=== PATIENT | male | born 1960 | race Caucasian/White ===

== ENCOUNTER 2019-08-30 10:25 | Emergency (ER) | payer SELFPAY ==
[~2019-08-30] VITALS: Ht 170 cm; Wt 65.0 kg
--- NOTE | 2019-08-30 10:46 | ED Upper Extremity ---
General Chief Complaint: Upper Extremity Stated Complaint: POSS BROKEN ARM Source: patient Exam Limitations: no limitations History of Present Illness Date Seen by Provider: Aug 30, 2019 Time Seen by Provider: 10:44 Initial Comments ER with right shoulder pain after he tripped and fell landing directly on the shoulder last night while caring for his dogs. Onset: yesterday Severity: moderate Pain/Injury Location: right shoulder Method of Injury: fell Modifying Factors: Worse With Movement Allergies and Home Medications Allergies Coded Allergies: No Known Drug Allergies (Unverified , 08/30/19) Home Medications No Active Prescriptions or Reported Meds Patient Home Medication List Home Medication List Reviewed: Yes Review of Systems Constitutional: see HPI EENTM: see HPI Respiratory: no symptoms reported Cardiovascular: no symptoms reported Genitourinary: no symptoms reported Musculoskeletal: see HPI Skin: no symptoms reported Psychiatric/Neurological: No Symptoms Reported Past Muclfit-Dzyxem-Xsftym Hx Patient Social History Recent Foreign Travel: No Contact w/Someone Who Travel: No Physical Exam Vital Signs Vital Signs - First Documented 08/30/19 10:30 Temp 37.0 Pulse 102 Resp 16 B/P (MAP) 136/95 (109) Pulse Ox 98 O2 Delivery Room Air Capillary Refill : Height, Weight, BMI Height: '" Weight: lbs. oz. kg; BMI Method: General Appearance: WD/WN, no apparent distress HEENT: PERRL/EOMI, normal ENT inspection Neck: non-tender, full range of motion Gastrointestinal: normal bowel sounds, non tender Shoulder: limited ROM, pain, soft tissue tenderness Elbow/Forearm: normal inspection, non-tender, Right Wrist: Yes normal inspection, Yes non-tender Hand: normal inspection, non-tender, Right Neurologic/Psychiatric: alert, normal mood/affect, oriented x 3 Skin: normal color, warm/dry Progress/Results/Core Measures Results/Orders My Orders Orders - LYNDA HARRISON APRN Shoulder, Right, 3 Views (08/30/19 10:39) Vital Signs/I&O 08/30/19 10:30 Temp 37.0 Pulse 102 Resp 16 B/P (MAP) 136/95 (109) Pulse Ox 98 O2 Delivery Room Air Departure Impression Primary Impression: Shoulder fracture, right Qualified Codes: S42.91XA - Fracture of right shoulder girdle, part unspecified, initial encounter for closed fracture Disposition: 01 HOME, SELF-CARE Condition: Stable Departure-Patient Inst. Decision time for Depature: 11:01 Referrals: TITA PETTIT JOHN T MD SCHWAB, TERRY D MD STRINGER, ROBERT F DO ZAFUTA, MICHAEL P MD Patient Instructions: Shoulder Fracture Add. Discharge Instructions: 1. Wear the sling at all times except when showering 2. Take medication as directed. The pain medication can be constipating. You should increase her water intake and take a stool softener such as docusate which can be purchased [id number] [facility] or [facility] to help avoid constipation. 3. Call orthopedic surgeon of your choosing today or tomorrow to make an appointment to be seen within the next few weeks. All discharge instructions reviewed with patient and/or family. Voiced understanding. Scripts Hydrocodone Bit/Acetaminophen (Hydrocodone/Acetaminophen 5/325mg Tablet) 1 Tab Tab 1 EACH PO Q4-6HR PRN for PAIN-MODERATE MDD 10 for 3 Days, #30 TAB Prov: LYNDA HARRISON APRN 08/30/19 LYNDA HARRISON APRN Aug 30, 2019 10:46 POS
--- NOTE | 2019-08-30 11:02 | Diagnostic Imaging Report ---
INDICATION: Right shoulder pain. AP, oblique, and transscapular views of the right shoulder are obtained. There is acute fracture of the right humeral neck and head, without significant angulation. There is no dislocation of the glenohumeral joint. AC joint is intact. IMPRESSION: Acute fracture of the right humeral neck and head, with no significant angulation. Dictated by: Dictated on workstation # [id number]
[2019-08-30] MEDS ORDERED: ACHD5005 PO (11:03)
[2019-08-30] MEDS ORDERED: OXYC1TAB87 PO (11:10)
[2019-08-30 11:25] VITALS: BP 136/95
== END 2019-08-30 11:25 | disposition home or self-care (01) ==
LOC: EDUNIT# 10:25 → ER 10:32
DX: S42.91XA Fracture of right shoulder girdle, part unspecified, initial encounter for closed fracture (principal); W01.0XXA Fall on same level from slipping, tripping and stumbling without subsequent striking against object, initial encounter
CPT/HCPCS: 73030

== ENCOUNTER 2020-02-06 11:26 | Inpatient (IN) | payer SELFPAY ==
[~2020-02-06] VITALS: Ht 167.7 cm; Wt 75.0 kg
[2020-02-06] VITALS (10 sets, daily range): BP systolic 94–123; BP diastolic 6–85
[~2020-02-06 11:26] MED LIST: ACHD5005 PO; OXYC1TAB87 PO
--- OUTSIDE RECORDS SUMMARY | 2020-02-06 11:31 | XMS REPORT | Continuity of Care Document ---
Author Organization Unknown Address Unknown Phone Unavailable Allergies Active Description Code Type Severity Reaction Onset Reported/Identified Relationship to Patient Clinical Status Yes No Known Drug Allergies [id number] Drug Allergy Unknown N/A 08/30/2019 Medications There is no data. Problems There is no data. Procedures There is no data. Results There is no data. Encounters ACCT No. Visit Date/Time Discharge Status Pt. Type Provider Facility Loc./Unit Complaint [id number] 07/02/2017 08:28:00 07/02/2017 23:59: 00 DIS Outpatient DARREN VAZQUEZ [id number] 08/30/2019 10:32:00 019 11:25:00 DIS Emergency LYNDA HARRISON APRN Via [facility] ER POSS BROKEN ARM
--- NOTE | 2020-02-06 12:03 | ED General ---
General Stated Complaint: BILAT LEG SWELLING/NOT URINATING FREQUENTLY Source of Information: Patient Exam Limitations: No Limitations History of Present Illness Date Seen by Provider: February 06, 2020 Time Seen by Provider: 12:00 Initial Comments To ER with reports of urinary infrequency despite drinking a lot of fluids for the past week. He reports that when he does urinate it all. No fevers no chills but he has had shortness of breath without cough for one week. He's had bilateral right greater than left lower extremity swelling and ecchymosis without known injury for the past 3 days. He knows he is healthy and takes no medications and follows with Dr. Ram. Timing/Duration: 3-4 Days Severity: Moderate Associated Systoms: No Chest Pain, No Cough, No Diaphoresis, No Fever/Chills Allergies and Home Medications Allergies Coded Allergies: No Known Drug Allergies (Unverified , 08/30/19) Home Medications Hydrocodone Bit/Acetaminophen 1 Tab Tab, 1 EACH PO Q4-6HR PRN for PAIN-MODERATE Prescribed by: LYNDA HARRISON on 08/30/19 1103 Oxycodone HCl/Acetaminophen 1 Each Tablet, 1 TAB PO Q4H Prescribed by: LYNDA HARRISON on 08/30/19 1110 Patient Home Medication List Home Medication List Reviewed: Yes Review of Systems Review of Systems Constitutional: see HPI EENTM: see HPI Respiratory: no symptoms reported Cardiovascular: no symptoms reported Genitourinary: no symptoms reported Musculoskeletal: no symptoms reported Skin: see HPI, change in color Psychiatric/Neurological: No Symptoms Reported Hematologic/Lymphatic: No Symptoms Reported Immunological/Allergic: no symptoms reported Past Kxigtcg-Afmdns-Zikgwn Hx Patient Social History Former Smoker, Quit: Aug 15, 2003 Recent Foreign Travel: No Contact w/Someone Who Travel: No Recent Hopitalizations: No Past Medical History Surgeries: No Respiratory: No Cardiac: Yes Hypertension Genitourinary: No Gastrointestinal: No Musculoskeletal: No Endocrine: No HEENT: No Cancer: No Psychosocial: No Integumentary: No Physical Exam Vital Signs Vital Signs - First Documented 02/06/20 11:40 Temp 36.9 Pulse 83 Resp 18 B/P (MAP) 136/74 (94) Pulse Ox 100 O2 Delivery Room Air Capillary Refill : Height, Weight, BMI Height: '" Weight: lbs. oz. kg; 22.00 BMI Method: General Appearance: No Apparent Distress, WD/WN, Thin Eyes: Bilateral Eye Normal Inspection, Bilateral Eye PERRL, Bilateral Eye EOMI Neck: Full Range of Motion, Normal Inspection Respiratory: Normal Breath Sounds, No Accessory Muscle Use, No Respiratory Distress, Other (despite CT findings there is no ecchymosis or tenderness to palpation to the right lateral chest) Cardiovascular: Regular Rate, Rhythm, Normal Peripheral Pulses Gastrointestinal: Normal Bowel Sounds, Non Tender, Soft Extremity: Non Tender, Other (bilateral lower extremities swelling right greater than left with pitting edema up to the pelvis. Bilateral lower extremities have a jaundiced and ecchymotic appearance with erythema distally. He has audible blood flow with Doppler over the dorsalis pedis arteries bilaterally.) Neurologic/Psychiatric: Alert, Oriented x3 Skin: Normal Color, Warm/Dry Progress/Results/Core Measures Suspected Sepsis SIRS Temperature: Pulse: Respiratory Rate: Laboratory Tests 02/06/20 11:55: White Blood Count 7.6 Blood Pressure / Mean: Laboratory Tests 02/06/20 11:55: Creatinine 0.92, INR Comment 1.5H, Platelet Count 264, Total Bilirubin 2.5H Results/Orders Lab Results Laboratory Tests Test 02/06/20 11:55 Range/Units White Blood Count 7.6 4.3-11.0 10^3/uL Red Blood Count 2.32 L 4.35-5.85 10^6/uL Hemoglobin 7.4 L 13.3-17.7 G/DL Hematocrit 22 L 40-54 % Mean Corpuscular Volume 95 80-99 FL Mean Corpuscular Hemoglobin 32 25-34 PG Mean Corpuscular Hemoglobin Concent 34 32-36 G/DL Red Cell Distribution Width 13.1 10.0-14.5 % Platelet Count 264 130-400 10^3/uL Mean Platelet Volume 10.3 7.4-10.4 FL Neutrophils (%) (Auto) 79 H 42-75 % Lymphocytes (%) (Auto) 10 L 12-44 % Monocytes (%) (Auto) 9 0-12 % Eosinophils (%) (Auto) 1 0-10 % Basophils (%) (Auto) 0 0-10 % Neutrophils # (Auto) 6.1 1.8-7.8 X 10^3 Lymphocytes # (Auto) 0.8 L 1.0-4.0 X 10^3 Monocytes # (Auto) 0.7 0.0-1.0 X 10^3 Eosinophils # (Auto) 0.1 0.0-0.3 10^3/uL Basophils # (Auto) 0.0 0.0-0.1 10^3/uL Erythrocyte Sedimentation Rate 43 H 0-30 MM/HR Prothrombin Time 18.6 H 12.2-14.7 SEC INR Comment 1.5 H 0.8-1.4 Activated Partial Thromboplast Time 30 24-35 SEC D-Dimer 3.52 H 0.00-0.49 UG/ML Sodium Level 122 *L 135-145 MMOL/L Potassium Level 3.7 3.6-5.0 MMOL/L Chloride Level 91 L 98-107 MMOL/L Carbon Dioxide Level 20 L 21-32 MMOL/L Anion Gap 11 5-14 MMOL/L Blood Urea Nitrogen 15 7-18 MG/DL Creatinine 0.92 0.60-1.30 MG/DL Estimat Glomerular Filtration Rate > 60 BUN/Creatinine Ratio 16 Glucose Level 109 H 70-105 MG/DL Calcium Level 7.7 L 8.5-10.1 MG/DL Corrected Calcium 8.5 8.5-10.1 MG/DL Total Bilirubin 2.5 H 0.1-1.0 MG/DL Aspartate Amino Transf (AST/SGOT) 25 5-34 U/L Alanine Aminotransferase (ALT/SGPT) 14 0-55 U/L Alkaline Phosphatase 82 40-136 U/L Troponin I < 0.028 <0.028 NG/ML C-Reactive Protein High Sensitivity 6.39 H 0.00-0.50 MG/DL B-Type Natriuretic Peptide 163.1 H <100.0 PG/ML Total Protein 5.4 L 6.4-8.2 GM/DL Albumin 3.0 L 3.2-4.5 GM/DL Serum Alcohol < 10 <10 MG/DL My Orders Orders - LYNDA HARRISON APRN Cbc With Automated Diff (02/06/20 11:52) Comprehensive Metabolic Panel (02/06/20 11:52) Erythrocyte Sedimentation Rate (02/06/20 11:52) Hs C Reactive Protein (02/06/20 11:52) Fibrin Degradation Products (02/06/20 11:52) Ekg Tracing (02/06/20 11:52) BNP (02/06/20 11:52) Ed Iv/Invasive Line Start (02/06/20 11:52) Protime With Inr (02/06/20 11:52) Partial Thromboplastin Time (02/06/20 11:52) Troponin I (02/06/20 11:52) Ua Culture If Indicated (02/06/20 12:04) Ct Chest/Abdomen/Pelvis Wo (02/06/20 12:05) Ct Cynthia Chest/Noang Abd-Pelv W (02/06/20 12:36) Iohexol Injection (Omnipaque 350 Mg/Ml 1 (02/06/20 13:00) Received Contrast (Hold Metformin- Contr (02/06/20 13:00) Sodium Chloride Flush (Catheter Flush Sy (02/06/20 13:00) Ns (Ivpb) (Sodium Chloride 0.9% Ivpb Bag (02/06/20 13:00) Alcohol (02/06/20 12:55) Red Cells Leukocytes Reduced (02/06/20 13:44) Type And Screen (02/06/20 13:44) Medications Given in ED Current Medications Medications Dose Ordered Sig/Edith Route Start Time Stop Time Status Last Admin Dose Admin Iohexol 100 ml ONCE ONCE IV 02/06/20 13:00 02/06/20 13:01 DC 02/06/20 13:07 61 ML Sodium Chloride 10 ml NEEDED PRN IV 02/06/20 13:00 02/06/20 13:07 10 ML Sodium Chloride 100 ml ONCE ONCE IV 02/06/20 13:00 02/06/20 13:01 DC 02/06/20 13:07 80 ML Vital Signs/I&O 02/06/20 11:40 Temp 36.9 Pulse 83 Resp 18 B/P (MAP) 136/74 (94) Pulse Ox 100 O2 Delivery Room Air Capillary Refill : Diagnostic Imaging Diagonstic Imaging: CT Comments NAME: ALEKSEY ROY MED REC#: [id number] PT STATUS: REG ER : 1960 PHYSICIAN: LYNDA HARRISON APRN ADMIT DATE: 02/06/20/ER Draft Date of Exam:02/06/20 CT CHEST/ABDOMEN/PELVIS WO PROCEDURE: CT chest, abdomen, and pelvis without contrast. TECHNIQUE: Multiple contiguous axial images were obtained through the chest, abdomen, and pelvis without the use of intravenous contrast. Auto Exposure Controls were utilized during the CT exam to meet ALARA standards for radiation dose reduction. INDICATION: Bilateral lower extremity swelling and bruising. Dark urine. COMPARISON: None. FINDINGS: CHEST: Advanced centrilobular emphysema. Calcific granulomas in the right lung. Lungs are otherwise clear. No pleural effusion or pneumothorax. Calcified right hilar and mediastinal lymph nodes. No mediastinal, hilar or axillary lymphadenopathy. Normal heart size. No pericardial effusion. Mild atherosclerotic calcifications. Right 4th through 8th rib fractures appear acute to subacute but evaluation is limited by motion. ABDOMEN AND PELVIS: Cholelithiasis without secondary findings of cholecystitis. The liver, pancreas, spleen, adrenals, kidneys, collecting systems, bladder and appendix are negative. No free intraperitoneal air or fluid. No lymphadenopathy. No evidence of bowel obstruction. Moderate atherosclerotic calcifications including a normal caliber abdominal aorta. Minimal anterior wedging of L3 results in approximately 10% height loss. This is age indeterminate but likely chronic. Advanced degenerative changes in the left hip, moderate in the right. IMPRESSION: 1. Examination limited by motion. 2. Advanced centrilobular emphysema. 3. Right 4th through 8th mildly angulated lateral rib fractures appear acute to subacute. 4. Minimal anterior wedging of L3 appears chronic but is technically indeterminate. This could be further evaluated with MRI if clinically warranted. 5. Cholelithiasis without secondary findings of cholecystitis. 6. No acute CT findings in the abdomen or pelvis on this noncontrast exam. Dictated on workstation # [id number] Dict: 02/06/20 1229 Trans: 02/06/20 1250 [facility] [id number] Interpreted by: ALDA MENSAH MD Electronically signed by: NAME: ALEKSEY ROY [place] MED REC#: [id number] PT STATUS: REG ER : 1960 PHYSICIAN: LYNDA HARRISON ENVIRONMENTAL TECHNICAL OFFICER ADMIT DATE: 02/06/20/ER Draft Date of Exam:02/06/20 CT [facility]NTHIA CHEST/NOANG ABD-PELV W CTA chest, abdomen and pelvis Thin axial sections through the chest, abdomen and pelvis are obtained following intravenous contrast bolus. Multiplanar MIP images were reconstructed and reviewed. All CT scans use one or more of the following dose optimizing techniques: automated exposure control, MA and/or KvP adjustment based on a patient size and exam type, or iterative reconstruction. INDICATION: Bilateral lower extremity swelling and bruising. Dark urine. COMPARISON: Chest, abdomen and pelvis without contrast performed today. FINDINGS: No pulmonary emboli. No thoracic aortic aneurysm or dissection. Normal caliber thoracic aorta. Normal heart size. No pericardial effusion. No mediastinal, hilar or axillary lymphadenopathy. Advanced centrilobular emphysema. Calcified granuloma in the right lung. Calcified right hilar lymph nodes. No pleural effusion or pneumothorax. No endobronchial lesions. Acute appearing mildly angulated right 5th through 9th rib fractures. Chronic appearing posterior lower left rib fractures. Schmorl's node and anterior wedging in the superior endplate of T4 appears chronic. Again noted is anterior wedging of L3 which is also likely chronic. Cholelithiasis without secondary findings of cholecystitis. The liver, pancreas, spleen, adrenals, kidneys, collecting systems and bladder are negative. Negative appendix. Moderate atherosclerotic calcifications. No free intraperitoneal air or fluid. No lymphadenopathy. No evidence of bowel obstruction or inflammation. Sclerosis in both femoral heads consistent with avascular necrosis. Advanced left and moderate right degenerative changes in the hips. IMPRESSION: 1. No pulmonary emboli. No thoracic aortic aneurysm or dissection. 2. Advanced centrilobular emphysema. 3. Mildly angulated right 5th through 9th rib fractures are acute. 4. Chronic appearing anterior wedging of the superior endplate of T4 with associated Schmorl's node. Again noted is anterior wedging of L3 which is also likely chronic. 5. Cholelithiasis without secondary findings of cholecystitis. 6. Moderate to advanced degenerative changes in both hips including evidence of avascular necrosis bilaterally. Dictated on workstation # [id number] Dict: 02/06/20 1318 Trans: 02/06/20 1339 [facility] [id number] Interpreted by: ALDA MENSAH MD Electronically signed by: Departure Communication (Admissions) Time/Spoke to Admitting Phy: 13:51 Dr. Maynard, will admit, hydrate, recheck labs in the morning, Impression Primary Impression: Anemia Qualified Codes: D64.9 - Anemia, unspecified Additional Impressions: Right rib fracture Qualified Codes: S22.41XA - Multiple fractures of ribs, right side, initial encounter for closed fracture Hyponatremia Disposition: ADMITTED INPATIENT Condition: Stable Admissions Decision to Admit Reason: Admit from ER (General) Decision to Admit/Date: February 06, 2020 Time/Decision to Admit Time: 13:44 Departure-Patient Inst. Referrals: DARREN RAM MD (PCP/Family) Primary Care Physician LYNDA HARRISON APRN February 06, 2020 12:03
[2020-02-06 12:06] LABS: BASOPHILS % (AUTO) 0 % (0-10); EOSINOPHILS # (AUTO) 0.1 10^3/uL (0.0-0.3); EOSINOPHILS % (AUTO) 1 % (0-10); HEMATOCRIT 22 % (40-54); HEMOGLOBIN 7.4 G/DL (13.3-17.7); LYMPHOCYTES # (AUTO) 0.8 X 10^3 (1.0-4.0); LYMPHOCYTES % (AUTO) 10 % (12-44); MEAN CORPUSCULAR HEMOGLOBIN 32 PG (25-34); MEAN CORPUSCULAR HGB CONC 34 G/DL (32-36); MEAN CORPUSCULAR VOLUME 95 FL (80-99); MEAN PLATELET VOLUME 10.3 FL (7.4-10.4); MONOCYTES # (AUTO) 0.7 X 10^3 (0.0-1.0); MONOCYTES % (AUTO) 9 % (0-12); NEUTROPHILS # (AUTO) 6.1 X 10^3 (1.8-7.8); NEUTROPHILS % (AUTO) 79 % (42-75); PLATELET COUNT 264 10^3/uL (130-400); RED CELL DISTRIBUTION WIDTH 13.1 % (10.0-14.5); WHITE BLOOD COUNT 7.6 10^3/uL (4.3-11.0)
[2020-02-06 12:15] LABS: CHLORIDE 91 MMOL/L (98-107); POTASSIUM 3.7 MMOL/L (3.6-5.0)
[2020-02-06 12:17] LABS: CALCIUM 7.7 MG/DL (8.5-10.1)
[2020-02-06 12:18] LABS: FIBRIN DEGRADATION PRODUCTS 3.52 UG/ML (0.00-0.49); GLUCOSE 109 MG/DL (70-105); INR 1.5 (0.8-1.4); PROTHROMBIN TIME PATIENT 18.6 SEC (12.2-14.7); TOTAL PROTEIN 5.4 GM/DL (6.4-8.2)
[2020-02-06 12:19] LABS: CARBON DIOXIDE 20 MMOL/L (21-32)
[2020-02-06 12:20] LABS: BILIRUBIN,TOTAL 2.5 MG/DL (0.1-1.0)
[2020-02-06 12:21] LABS: ALKALINE PHOSPHATASE 82 U/L (40-136)
[2020-02-06 12:22] LABS: CREATININE SERUM 0.92 MG/DL (0.60-1.30); GFR ESTIMATED > 60
[2020-02-06 12:23] LABS: BUN/CREATININE RATIO 16
[2020-02-06 12:25] LABS: ALANINE AMINOTRANSFERASE 14 U/L (0-55)
[2020-02-06 12:28] LABS: SODIUM 122 MMOL/L (135-145)
--- NOTE | 2020-02-06 12:51 | Diagnostic Imaging Report ---
PROCEDURE: CT chest, abdomen, and pelvis without contrast. TECHNIQUE: Multiple contiguous axial images were obtained through the chest, abdomen, and pelvis without the use of intravenous contrast. Auto Exposure Controls were utilized during the CT exam to meet ALARA standards for radiation dose reduction. INDICATION: Bilateral lower extremity swelling and bruising. Dark urine. COMPARISON: None. FINDINGS: CHEST: Advanced centrilobular emphysema. Calcific granulomas in the right lung. Lungs are otherwise clear. No pleural effusion or pneumothorax. Calcified right hilar and mediastinal lymph nodes. No mediastinal, hilar or axillary lymphadenopathy. Normal heart size. No pericardial effusion. Mild atherosclerotic calcifications. Right 4th through 8th rib fractures appear acute to subacute but evaluation is limited by motion. ABDOMEN AND PELVIS: Cholelithiasis without secondary findings of cholecystitis. The liver, pancreas, spleen, adrenals, kidneys, collecting systems, bladder and appendix are negative. No free intraperitoneal air or fluid. No lymphadenopathy. No evidence of bowel obstruction. Moderate atherosclerotic calcifications including a normal caliber abdominal aorta. Minimal anterior wedging of L3 results in approximately 10% height loss. This is age indeterminate but likely chronic. Advanced degenerative changes in the left hip, moderate in the right. IMPRESSION: 1. Examination limited by motion. 2. Advanced centrilobular emphysema. 3. Right 4th through 8th mildly angulated lateral rib fractures appear acute to subacute. 4. Minimal anterior wedging of L3 appears chronic but is technically indeterminate. This could be further evaluated with MRI if clinically warranted. 5. Cholelithiasis without secondary findings of cholecystitis. 6. No acute CT findings in the abdomen or pelvis on this noncontrast exam. Dictated by: Dictated on workstation # [id number]
[2020-02-06] MEDS ORDERED: HOLD METFORMIN - RECEIVED CONTRAST 20 ML VIAL IV SCH (13:00)
[2020-02-06] MEDS ORDERED: IOHEXOL 350 MG/ML 100 ML (OMNIPAQUE 350) VIAL IV ONE (13:00)
[2020-02-06] MEDS ORDERED: NS 100 ML (IVPB) BAG IV ONE (13:00)
[2020-02-06 13:03] LABS: ERYTHROCYTE SEDIMENTATION RATE 43 MM/HR (0-30)
[2020-02-06] MEDS: CATHETER FLUSH 10 ML SYR IV PRN (13:07)
--- NOTE | 2020-02-06 13:41 | Diagnostic Imaging Report ---
CTA chest, abdomen and pelvis Thin axial sections through the chest, abdomen and pelvis are obtained following intravenous contrast bolus. Multiplanar MIP images were reconstructed and reviewed. All CT scans use one or more of the following dose optimizing techniques: automated exposure control, MA and/or KvP adjustment based on a patient size and exam type, or iterative reconstruction. INDICATION: Bilateral lower extremity swelling and bruising. Dark urine. COMPARISON: Chest, abdomen and pelvis without contrast performed today. FINDINGS: No pulmonary emboli. No thoracic aortic aneurysm or dissection. Normal caliber thoracic aorta. Normal heart size. No pericardial effusion. No mediastinal, hilar or axillary lymphadenopathy. Advanced centrilobular emphysema. Calcified granuloma in the right lung. Calcified right hilar lymph nodes. No pleural effusion or pneumothorax. No endobronchial lesions. Acute appearing mildly angulated right 5th through 9th rib fractures. Chronic appearing posterior lower left rib fractures. Schmorl's node and anterior wedging in the superior endplate of T4 appears chronic. Again noted is anterior wedging of L3 which is also likely chronic. Cholelithiasis without secondary findings of cholecystitis. The liver, pancreas, spleen, adrenals, kidneys, collecting systems and bladder are negative. Negative appendix. Moderate atherosclerotic calcifications. No free intraperitoneal air or fluid. No lymphadenopathy. No evidence of bowel obstruction or inflammation. Sclerosis in both femoral heads consistent with avascular necrosis. Advanced left and moderate right degenerative changes in the hips. IMPRESSION: 1. No pulmonary emboli. No thoracic aortic aneurysm or dissection. 2. Advanced centrilobular emphysema. 3. Mildly angulated right 5th through 9th rib fractures are acute. 4. Chronic appearing anterior wedging of the superior endplate of T4 with associated Schmorl's node. Again noted is anterior wedging of L3 which is also likely chronic. 5. Cholelithiasis without secondary findings of cholecystitis. 6. Moderate to advanced degenerative changes in both hips including evidence of avascular necrosis bilaterally. Dictated by: Dictated on workstation # [id number]
--- OUTSIDE RECORDS SUMMARY | 2020-02-06 14:03 | XMS REPORT | Continuity of Care Document ---
Author Organization Unknown Address Unknown Phone Unavailable Allergies Active Description Code Type Severity Reaction Onset Reported/Identified Relationship to Patient Clinical Status Yes No Known Drug Allergies [id number] Drug Allergy Unknown N/A 08/30/2019 Medications There is no data. Problems There is no data. Procedures There is no data. Results There is no data. Encounters ACCT No. Visit Date/Time Discharge Status Pt. Type Provider Facility Loc./Unit Complaint [id number] 07/02/2017 08:28:00 07/02/2017 23:59: 00 DIS Outpatient DARREN VAZQUEZ [id number] 08/30/2019 10:32:00 019 11:25:00 DIS Emergency LYNDA HARRISON APRN Via [facility] ER POSS BROKEN ARM
--- NOTE | 2020-02-06 14:04 | NUR ---
TYPE AND CROSS DRAWN
--- NOTE | 2020-02-06 14:30 | NUR ---
ALEKSEY ROY [place] admitted to room CU7-1, with an admitting diagnosis of HYPONATREMIA, ANEMIA, AND HO ALCOHOLISM, on 02/06/20 from ER via , accompanied by STAFF.ALEKSEY ROY introduced to surroundings, call light, bed controls, phone, TV, temperature control, lights, meal times, smoking policy, visitor policy, side rail policy, bathrooms and showers. Patient Rights given to patient in the handbook. ALEKSEY ROY verbalizes understanding that [facility] is not responsible for the loss or damage to any personal effects or valuables that are kept in the patients posession during their hospitalization. The following Patient Care Plans were discussed with the PT: Discharge Planning, IMPAIRED GAS EXCHANGE,KNOWLEDGE DEFICIT, and PAIN. ALEKSEY ROY verbalizes understanding of Interdisciplinary Patient Education. Patient and family were informed about the Rapid Response Team and its purpose.
[2020-02-06] MEDS: NS IV 1000 ML 1,000 ML IV SCH ×2 (15:04→23:05)
--- NOTE | 2020-02-06 15:42 | NUR ---
2 UNITS OF BLOOD ON HOLD, NOT TO BE GIVEN AT THIS TIME PER LYNDA HARRISON APRN.
[2020-02-07] VITALS (8 sets, daily range): BP systolic 102–132; BP diastolic 52–71
[2020-02-07] MEDS: ACETAMINOPHEN 325 MG TABLET PO PRN ×2 (03:38→07:59)
[2020-02-07 03:46] LABS: BASOPHILS % (AUTO) 0 % (0-10); EOSINOPHILS # (AUTO) 0.1 10^3/uL (0.0-0.3); EOSINOPHILS % (AUTO) 2 % (0-10); LYMPHOCYTES # (AUTO) 0.8 X 10^3 (1.0-4.0); LYMPHOCYTES % (AUTO) 20 % (12-44); MEAN CORPUSCULAR HEMOGLOBIN 32 PG (25-34); MEAN CORPUSCULAR HGB CONC 33 G/DL (32-36); MEAN CORPUSCULAR VOLUME 96 FL (80-99); MEAN PLATELET VOLUME 10.5 FL (7.4-10.4); MONOCYTES # (AUTO) 0.4 X 10^3 (0.0-1.0); MONOCYTES % (AUTO) 10 % (0-12); NEUTROPHILS # (AUTO) 2.7 X 10^3 (1.8-7.8); NEUTROPHILS % (AUTO) 69 % (42-75); PLATELET COUNT 166 10^3/uL (130-400); RED CELL DISTRIBUTION WIDTH 13.1 % (10.0-14.5); WHITE BLOOD COUNT 3.9 10^3/uL (4.3-11.0)
[2020-02-07 04:01] LABS: HEMOGLOBIN 5.8 G/DL (13.3-17.7)
[2020-02-07 04:02] LABS: HEMATOCRIT 18 % (40-54)
[2020-02-07 04:06] LABS: ALBUMIN 2.5 GM/DL (3.2-4.5); CHLORIDE 95 MMOL/L (98-107); POTASSIUM 3.8 MMOL/L (3.6-5.0)
[2020-02-07 04:07] LABS: CALCIUM 7.1 MG/DL (8.5-10.1)
[2020-02-07 04:08] LABS: GLUCOSE 92 MG/DL (70-105)
[2020-02-07 04:09] LABS: CARBON DIOXIDE 19 MMOL/L (21-32)
[2020-02-07 04:10] LABS: BILIRUBIN,TOTAL 1.9 MG/DL (0.1-1.0)
[2020-02-07 04:12] LABS: ALKALINE PHOSPHATASE 67 U/L (40-136); CREATININE SERUM 0.81 MG/DL (0.60-1.30); GFR ESTIMATED > 60
[2020-02-07 04:13] LABS: BUN/CREATININE RATIO 19
[2020-02-07 04:15] LABS: ALANINE AMINOTRANSFERASE 10 U/L (0-55)
[2020-02-07 04:27] LABS: SODIUM 123 MMOL/L (135-145)
[2020-02-07] MEDS ORDERED: NS IV 500 ML 500 ML IV SCH (04:30)
[2020-02-07] MEDS: NS IV 1000 ML 1,000 ML IV SCH ×3 (07:59→21:11)
[2020-02-07] MEDS ORDERED: ANTACID SUSP 30 ML UDC (MYLANTA) PO PRN (13:30)
[2020-02-07] MEDS ORDERED: ONDANSETRON 4 MG/2 ML (SDV) Z0FRAN IV PRN (13:30)
[2020-02-07] MEDS ORDERED: polyethylene glycoL POWDER 17 GM (MIRALAX) PACK PO PRN (13:30)
[2020-02-07] MEDS ORDERED: MELATONIN 3 MG TABLET PO PRN (13:30)
[2020-02-07] MEDS ORDERED: ONDANSETRON 4 MG (ZOFRAN) ORAL DISSOLVE TAB PO PRN (13:30)
--- NOTE | 2020-02-07 13:31 | History & Physical-Hospitalist ---
History of Present Illness HPI/Chief Complaint Jose L Car is a 59-year-old male with past medical history of chronic back pain, alcohol abuse, who presented with leg swelling and bruising. He reports that his legs up and swelling and bruising over the past few weeks. He reports that he quit drinking one month ago. Prior to that he had been drinking about 15 beers a day.he denies any fevers or chills. He denies any chest pain or palpitations. He denies any shortness of breath or cough. He denies any abdominal pain, nausea, vomiting, or diarrhea. He does not take any prescribed medications. He does take ibuprofen most days due to low back pain. Source: patient Exam Limitations: no limitations Date Seen 02/07/20 Time Seen by a Provider: 09:20 Attending Physician Selena Alvarado MD PCP Joe Washington MD Referring Physician Date of Admission February 06, 2020 at 13:49 Home Medications & Allergies Home Medications Reviewed patient Home Medication Reconciliation performed by pharmacy medication reconciliations surface water technician and/or nursing. Patients Allergies have been reviewed. Allergies Allergies Coded Allergies No Known Drug Allergies (Thagqbobgm22/16/19) Past Deriwzw-Dgogpw-Phngyy Hx Past Med/Social Hx: Reviewed and Corrections made Patient Social History Alcohol Use: Past History (quit drinking one month ago, previously heavy drinker (15 beers daily)) Recreational Drug Use: Yes (marijuana) Smoking Status: Never a Smoker Former Smoker, Quit: Aug 15, 2003 Recent Foreign Travel: No Contact w/other who traveled: No Recent Hopitalizations: No Recent Infectious Disease Expo: No Past Medical History Cardiac: Hypertension Family History Adopted (PT IS ADOPTED) Review of Systems Constitutional: no symptoms reported EENTM: no symptoms reported Respiratory: no symptoms reported Cardiovascular: edema Gastrointestinal: no symptoms reported Genitourinary: no symptoms reported Musculoskeletal: no symptoms reported Skin: no symptoms reported Psychiatric/Neurological: No Symptoms Reported Physical Exam Physical Exam Vital Signs Vital Signs - First Documented 02/06/20 11:40 Temp 36.9 Pulse 83 Resp 18 B/P (MAP) 136/74 (94) Pulse Ox 100 O2 Delivery Room Air Capillary Refill : Less Than 3 Seconds Height, Weight, BMI Height: '" Weight: lbs. oz. kg; 22.61 BMI Method: General Appearance: No Apparent Distress, WD/WN HEENT: PERRL/EOMI, Pharynx Normal Neck: Normal Inspection, Supple Respiratory: Lungs Clear, Normal Breath Sounds, No Respiratory Distress Cardiovascular: Regular Rate, Rhythm, No Murmur Gastrointestinal: Normal Bowel Sounds, Non Tender, Soft Extremity: Normal Inspection, Non Tender, No Pedal Edema Neurologic/Psychiatric: Alert, Oriented x3, No Motor/Sensory Deficits, Normal Mood/Affect Skin: Normal Color, Warm/Dry Results Results/Procedures Labs Laboratory Tests 02/06/20 11:55 02/07/20 02:55 Patient resulted labs reviewed. Imaging: Reviewed Imaging Report Assessment/Plan Admission Diagnosis Hyponatremia Admission Status: Inpatient Order (span 2 midnights) Reason for Inpatient Admission: Anemia Likely new onset cirrhosis Assessment and Plan Hyponatremia Normocytic anemia Likely new onset cirrhosis Hypoalbuminemia Edema Alcohol dependence sodium 122 on arrival, 123 this morning Continue normal saline Fluid restrict 1500 mL daily accurate intake and output Repeat sodium level this afternoon Hemoglobin 7.4 on arrival, 5.8 this morning transfuse 1 unit PRBC today Repeat hemoglobin this afternoon No evidence of bleeding source, possibly dilutional Check iron studies, B12/folate, fecal occult blood consult general surgery, appreciate assistance CT chest/abdomen/pelvis showed emphysema, acute rib fractures, cholelithiasis without cholecystitis Obtain ultrasound liver to assess for cirrhosis Obtain venous Dopplers to rule out DVT DVT prophylaxis: Held due to possible GI bleeding Diagnosis/Problems Diagnosis/Problems (1) Hyponatremia Status: Acute (2) Anemia Status: Acute Qualifiers: Anemia type: unspecified type Qualified Codes: D64.9 - Anemia, unspecified (3) Alcohol abuse Status: Chronic (4) Emphysema of lung Status: Chronic (5) Edema Status: Acute (6) Hypoalbuminemia Status: Acute (7) Cholelithiasis without cholecystitis Status: Chronic (8) Right rib fracture Status: Acute Qualifiers: Encounter type: initial encounter Rib fracture type: multiple ribs Fracture type: closed Qualified Codes: S22.41XA - Multiple fractures of ribs, right side, initial encounter for closed fracture Clinical Quality Measures DVT/VTE Risk/Contraindication: Risk Factor Score Per Nursin RFS Level Per Nursing on Admit: 4+=Very High SELENA ALVARADO MD February 07, 2020 13:31
[2020-02-07] MEDS ORDERED: PANTOPRAZOLE 40 MG (PROTONIX) VIAL IV ONE (13:45)
--- NOTE | 2020-02-07 13:48 | Consultation - Surgery ---
History of Present Illness History of Present Illness Patient Consulted On(rachelle/time) 02/07/20 13:29 Time Seen by Provider: 12:32 History of Present Illness Surgery asked to consult regarding profound anemia. HPI per ED: To ER with reports of urinary infrequency despite drinking a lot of fluids for the past week. He reports that when he does urinate it all. No fevers no chills but he has had shortness of breath without cough for one week. He's had bilateral right greater than left lower extremity swelling and ecchymosis without known injury for the past 3 days. He knows he is healthy and takes no medications and follows with Dr. Washington. Timing/Duration: 3-4 Days Severity: Moderate Associated Systoms: No Chest Pain, No Cough, No Diaphoresis, No Fever/Chills When I spoke to pt he denied any abdominal pain; stated he hadn't had any coffee ground emesis, hematochezia or melena. He states that he came in because he was feeling weak. About a weak ago he started getting swelling in his legs and then they started bruising. He states he was also a little short of breath. He denies any trauma, no falls and was not in a fight or beat up. He states he has never had swelling and bruising like this before. Allergies and Home Medications Allergies Coded Allergies: No Known Drug Allergies (Unverified , 08/30/19) Home Medications Hydrocodone Bit/Acetaminophen 1 Tab Tab, 1 EACH PO Q4-6HR PRN for PAIN-MODERATE Prescribed by: LYNDA HARRISON on 08/30/19 1103 Oxycodone HCl/Acetaminophen 1 Each Tablet, 1 TAB PO Q4H Prescribed by: LYNDA HARRISON on 08/30/19 1110 Patient Home Medication List Home Medication List Reviewed: Yes Past Txgunch-Dcydoy-Oghkvq Hx Patient Social History Alcohol Use: Regular Use (states he drinks beer, but stopped a month ago) Recreational Drug Use: No Smoking Status: Former Smoker (smoked at least 1 ppd for 26 years, quit in 2003) Former Smoker, Quit: Aug 15, 2003 Type Used: Cigarettes Recent Foreign Travel: No Contact w/Someone Who Travel: No Recent Infectious Disease Expo: No Recent Hopitalizations: No Surgeries History of Surgeries: No Respiratory History of Respiratory Disorde: No Cardiovascular History of Cardiac Disorders: Yes Cardiac Disorders: Hypertension Neurological History of Neurological Disord: No Reproductive System Hx Reproductive Disorders: No Sexually Transmitted Disease: No HIV/AIDS: No Genitourinary History of Genitourinary Disor: No Gastrointestinal History of Gastrointestinal Di: No Musculoskeletal History of Musculoskeletal Dis: No Endocrine History of Endocrine Disorders: No HEENT History of HEENT Disorders: No Hearing Impairment: Hard of Hearing Cancer History of Cancer: No Psychosocial History of Psychiatric Problem: No Integumentary History of Skin or Integumenta: No Family Medical History Significant Family History: Other Conditions/Hx (pt is adopted so does not know any family hx) Family Medial History: Adopted (PT IS ADOPTED) Review of Systems-General Constitutional: No chills; dizziness, weakness EENTM: No blurred vision, No double vision, No mouth pain, No mouth swelling, No epistaxis Respiratory: No cough, No dyspnea on exertion, No hemoptysis, No phlegm; short of breath Cardiovascular: No chest pain; edema; No palpitations Gastrointestinal: No abdominal pain, No jaundice, No melena, No nausea, No vomiting Genitourinary: No dysuria, No frequency, No hematuria Musculoskeletal: joint pain, joint swelling, muscle stiffness Skin: see HPI; No lesions, No pruritus, No rash Psychiatric/Neurological: Denies Anxiety, Denies Depressed, Denies Seizure, Denies Tingling Other pt denies any hx of abnormal bleeding or bruising Physical Exam-General Problems Physical Exam Vital Signs Vital Signs - First Documented 02/06/20 11:40 Temp 36.9 Pulse 83 Resp 18 B/P (MAP) 136/74 (94) Pulse Ox 100 O2 Delivery Room Air Capillary Refill : Less Than 3 Seconds General Appearance: no apparent distress, thin Eyes: Bilateral Eye PERRL, Bilateral Eye EOMI HEENT: No scleral icterus (R), No scleral icterus (L); other (poor dentition) Neck: non-tender, full range of motion Respiratory: lungs clear, normal breath sounds, no respiratory distress, no accessory muscle use Cardiovascular: regular rate, rhythm, no murmur Gastrointestinal: normal bowel sounds, non tender, soft, no organomegaly, no pulsatile mass Rectal: deferred Back: No muscle spasm; vertebral tenderness (right side) Extremities: no calf tenderness, pedal edema, other (large bruising from mid- thigh down, bilaterally) Neurologic/Psychiatric: medical technologist chemistry II-XII nml as tested, no motor/sensory deficits, oriented x 3 Skin: normal color (except legs), warm/dry Lymphatic: no adenopathy (neck, axilla or groin) Data Review Labs Laboratory Tests 02/07/20 02:55: White Blood Count 3.9L, Red Blood Count 1.83L, Hemoglobin 5.8#*L, Hematocrit 18*L, Mean Corpuscular Volume 96, Mean Corpuscular Hemoglobin 32, Mean Corpuscular Hemoglobin Concent 33, Red Cell Distribution Width 13.1, Platelet Count 166, Mean Platelet Volume 10.5H, Neutrophils (%) (Auto) 69, Lymphocytes (%) (Auto) 20, Monocytes (%) (Auto) 10, Eosinophils (%) (Auto) 2, Basophils (%) (Auto) 0, Neutrophils # (Auto) 2.7, Lymphocytes # (Auto) 0.8L, Monocytes # (Auto) 0.4, Eosinophils # (Auto) 0.1, Basophils # (Auto) 0.0, Sodium Level 123*L , Potassium Level 3.8, Chloride Level 95L, Carbon Dioxide Level 19L, Anion Gap 9, Blood Urea Nitrogen 15, Creatinine 0.81, Estimat Glomerular Filtration Rate > 60, BUN/Creatinine Ratio 19, Glucose Level 92, Calcium Level 7.1L, Corrected Calcium 8.3L, Total Bilirubin 1.9H, Aspartate Amino Transf (AST/SGOT) 23, Alanine Aminotransferase (ALT/SGPT) 10, Alkaline Phosphatase 67, Total Protein 5.0L, Albumin 2.5L Assessment/Plan Assessment/Plan Assessment/Plan Anemia Lower Extremity edema and bruising Hypertension Pt has profound anemia, but no obvious source and it is unlikely that the bruising in his legs could have brought hemoglobin down to 5.4. He stated he didn't think he has been told that his blood level was low before this. I d iscussed anemia work-up with the pt including EGD and colonoscopy. He is refusing the colonoscopy; "I really don't want to do that". He has agreed to at least do the EGD and then we can discuss further after that. Will make him NPO after midnight and get consent for EGD. Discussed risks and complications not limited to pain, bleeding and even esophageal perforation. All questions answered to his satisfaction. Clinical Quality Measures DVT/VTE Risk/Contraindication: Risk Factor Score Per Nursin RFS Level Per Nursing on Admit: 4+=Very High AKILA GARY DO February 07, 2020 13:48
[2020-02-07 14:58] LABS: HEMOGLOBIN 7.4 G/DL (13.3-17.7)
[2020-02-07] MEDS ORDERED: NS IV 1000 ML 1,000 ML IV SCH (16:30)
[2020-02-07] MEDS: DOCUSATE SODIUM 100 MG (COLACE) CAP PO SCH (21:10)
[2020-02-07] MEDS: PANTOPRAZOLE 40 MG (PROTONIX) VIAL IV SCH (21:10)
[2020-02-08] VITALS (10 sets, daily range): BP systolic 112–157; BP diastolic 56–86
[2020-02-08 03:33] LABS: BASOPHILS % (AUTO) 1 % (0-10); EOSINOPHILS # (AUTO) 0.1 10^3/uL (0.0-0.3); EOSINOPHILS % (AUTO) 2 % (0-10); HEMATOCRIT 22 % (40-54); HEMOGLOBIN 7.2 G/DL (13.3-17.7); LYMPHOCYTES # (AUTO) 0.7 X 10^3 (1.0-4.0); LYMPHOCYTES % (AUTO) 19 % (12-44); MEAN CORPUSCULAR HEMOGLOBIN 31 PG (25-34); MEAN CORPUSCULAR HGB CONC 34 G/DL (32-36); MEAN CORPUSCULAR VOLUME 94 FL (80-99); MEAN PLATELET VOLUME 10.5 FL (7.4-10.4); MONOCYTES # (AUTO) 0.3 X 10^3 (0.0-1.0); MONOCYTES % (AUTO) 10 % (0-12); NEUTROPHILS # (AUTO) 2.4 X 10^3 (1.8-7.8); NEUTROPHILS % (AUTO) 69 % (42-75); PLATELET COUNT 185 10^3/uL (130-400); RED CELL DISTRIBUTION WIDTH 15.5 % (10.0-14.5); WHITE BLOOD COUNT 3.5 10^3/uL (4.3-11.0)
[2020-02-08 03:48] LABS: ALBUMIN 2.5 GM/DL (3.2-4.5); CHLORIDE 101 MMOL/L (98-107); POTASSIUM 3.8 MMOL/L (3.6-5.0); SODIUM 128 MMOL/L (135-145)
[2020-02-08 03:50] LABS: CALCIUM 7.1 MG/DL (8.5-10.1)
[2020-02-08 03:51] LABS: GLUCOSE 91 MG/DL (70-105); TOTAL PROTEIN 5.2 GM/DL (6.4-8.2)
[2020-02-08 03:52] LABS: CARBON DIOXIDE 19 MMOL/L (21-32)
[2020-02-08 03:53] LABS: BILIRUBIN,TOTAL 1.8 MG/DL (0.1-1.0)
[2020-02-08 03:54] LABS: ALKALINE PHOSPHATASE 70 U/L (40-136); CREATININE SERUM 0.81 MG/DL (0.60-1.30); GFR ESTIMATED > 60
[2020-02-08 03:56] LABS: BUN/CREATININE RATIO 14
[2020-02-08 03:57] LABS: ALANINE AMINOTRANSFERASE 13 U/L (0-55)
[2020-02-08] MEDS: NS IV 1000 ML 1,000 ML IV SCH ×2 (06:27→16:29)
[2020-02-08] MEDS: DOCUSATE SODIUM 100 MG (COLACE) CAP PO SCH ×2 (08:03→20:45)
[2020-02-08] MEDS: PANTOPRAZOLE 40 MG (PROTONIX) VIAL IV SCH ×2 (08:22→20:44)
--- NOTE | 2020-02-08 08:36 | Diagnostic Imaging Report ---
PROCEDURE: US Venous Lower Ext [place]. TECHNIQUE: Multiple real-time grayscale images were obtained over the lower extremities in various projections, bilaterally. Additional duplex Doppler and color Doppler images were also obtained. INDICATION: Pain and swelling. FINDINGS: The common femoral, femoral, popliteal veins and tibial veins demonstrate normal response to compression, augmentation and Valsalva. There are no abnormal lower extremity fluid collections or masses. IMPRESSION: No evidence of deep venous thrombosis in either lower extremity. Dictated by: Dictated on workstation # [id number]
--- NOTE | 2020-02-08 08:40 | Diagnostic Imaging Report ---
PROCEDURE: US Hepatic (Liver). TECHNIQUE: Multiple real-time grayscale images were obtained over the right upper quadrant in various projections. INDICATION: Hyponatremia. FINDINGS: Liver is normal in size. There is hepatopedal flow in the main portal vein. There is no biliary duct dilatation. Common bile duct measures 4 mm. Gallbladder is contracted. Questionable cholelithiasis. Visualized portions of the pancreas are unremarkable. Aorta is nonaneurysmal. IVC is patent. Right kidney is normal. There is no ascites. IMPRESSION: Contracted gallbladder with some gallbladder wall thickening and likely cholelithiasis. Dictated by: Dictated on workstation # [id number]
[2020-02-08] MEDS ORDERED: IBUP-2185 PO (10:02)
--- NOTE | 2020-02-08 10:12 | NUR ---
I SPOKE WITH THE PT TO COMPLETE THE MED REC PT DENIES TAKING ANY PRESCRIPTION MEDICATION OTC MEDS: IBUPROFEN PRN
--- NOTE | 2020-02-08 11:53 | Progress Note - Hospitalist ---
Subjective HPI/CC On Admission Date Seen by Provider: February 08, 2020 Time Seen by Provider: 08:55 Jose L Car is a 59-year-old male with past medical history of chronic back pain, alcohol abuse, who presented with leg swelling and bruising. He reports that his legs up and swelling and bruising over the past few weeks. He reports that he quit drinking one month ago. Prior to that he had been drinking about 15 beers a day.he denies any fevers or chills. He denies any chest pain or palpitations. He denies any shortness of breath or cough. He denies any abdominal pain, nausea, vomiting, or diarrhea. He does not take any prescribed medications. He does take ibuprofen most days due to low back pain. Subjective/Events-last exam He reports feeling well today. He has not noticed any change in his leg swe lling. He denies any pain. He denies any trouble breathing. He is been eating and drinking well but is not eating prior to his procedure this morning. Objective Exam Vital Signs Vital Signs Date Time Temp Pulse Resp B/P (MAP) Pulse Ox O2 Delivery O2 Flow Rate FiO2 02/08/20 08:00 77 19 144/74 (97) 99 Room Air 02/08/20 04:00 37.0 Capillary Refill : Less Than 3 Seconds General Appearance: No Apparent Distress, WD/WN Respiratory: Lungs Clear, Normal Breath Sounds, No Respiratory Distress Cardiovascular: Regular Rate, Rhythm, No Murmur Gastrointestinal: Normal Bowel Sounds, Non Tender, Soft Extremity: Normal Inspection, Non Tender, Pedal Edema, Swelling Neurologic/Psychiatric: Alert, Oriented x3, No Motor/Sensory Deficits, Normal Mood/Affect Skin: Normal Color, Warm/Dry Results/Procedures Lab Laboratory Tests 02/07/20 14:51 02/08/20 03:00 Patient resulted labs reviewed. Imaging: Reviewed Imaging Report Assessment/Plan Assessment and Plan Assess & Plan/Chief Complaint Hyponatremia due to psychogenic polydipsia sodium 122 on arrival, 128 this morning Decrease normal saline to 100 mL/hr Continue fluid restriction Normocytic anemia Hemoglobin 7.4 on arrival, 5.8 yesterday morning, improved to 7.2 this morning Status post 1 unit PRBC 02/06 No evidence of bleeding source, possibly dilutional Iron studies not indicative of iron deficiency, ferritin pending B12/folate pending General surgery planning for EGD today Hypoalbuminemia Severe protein calorie malnutrition Edema Alcohol dependence CT chest/abdomen/pelvis showed emphysema, acute rib fractures, cholelithiasis without cholecystitis Ultrasound revealed normal-appearing liver Venous Dopplers negative for DVT Consult dietary for malnutrition Begin ensure high-protein supplements DVT prophylaxis: Held due to possible GI bleeding Diagnosis/Problems Diagnosis/Problems (1) Psychogenic polydipsia Status: Acute (2) Hyponatremia Status: Acute (3) Anemia Status: Acute Qualifiers: Anemia type: unspecified type Qualified Codes: D64.9 - Anemia, unspecified (4) Alcohol abuse Status: Chronic (5) Emphysema of lung Status: Chronic (6) Edema Status: Acute (7) Hypoalbuminemia Status: Acute (8) Severe protein-calorie malnutrition Status: Acute (9) Cholelithiasis without cholecystitis Status: Chronic (10) Right rib fracture Status: Acute Qualifiers: Encounter type: initial encounter Rib fracture type: multiple ribs Fracture type: closed Qualified Codes: S22.41XA - Multiple fractures of ribs, right side, initial encounter for closed fracture Clinical Quality Measures DVT/VTE Risk/Contraindication: Risk Factor Score Per Nursin RFS Level Per Nursing on Admit: 4+=Very High SELENA BURGESS MD February 08, 2020 11:53
[2020-02-08] MEDS ORDERED: KETAMINE/NaCl 50 MG/5 ML SYRINGE (ED ONLY) ONE (11:54)
[2020-02-08] MEDS ORDERED: MIDAZOLAM 2 MG/2 ML (VERSED) VIAL ONE (11:54)
[2020-02-08] MEDS ORDERED: proPOfol 200 MG/20 ML (DIPRIVAN) VIAL IV ONE (11:54)
[2020-02-08] MEDS ORDERED: LACTATED RINGERS 1,000 ML IV ONE (12:12)
[2020-02-08] MEDS: LACTATED RINGERS 1,000 ML IV SCH (12:17)
--- NOTE | 2020-02-08 12:37 | Progress Note-Post Operative ---
Post-Operative Progess Note Surgeon (s)/Kettle Loader (s) Surgeon AKILA GARY DO Kettle Loader: none Pre-Operative Diagnosis Severe Anemia Post-Operative Diagnosis Same plus Gastritis Duodenitis Hiatal hernia Procedure & Operative Findings Date of Procedure 02/08/20 Procedure Performed/Findings EGD with bx Anesthesia Type IV sedation by Anesthesiologist Estimated Blood Loss Estimated blood loss (mL): scant Specimens/Packing Specimens Removed duodenal bx antral bx body of stomach bx GE jxn bx AKILA GARY DO February 08, 2020 12:36
--- NOTE | 2020-02-08 15:01 | NUR ---
REPORT FROM JULIANNE EASTON FROM ICU AT THIS TIME.
--- NOTE | 2020-02-08 15:25 | NUR ---
REPORT GIVEN TO JULIANNE OLIVA. PT TRANSPORTED VIA W/C WITH ALL PERSONAL BELONGINGS TO ROOM 420 WITH NO DIFFICULTIES.
--- NOTE | 2020-02-08 19:50 | OPERATIVE REPORT ---
DATE OF SERVICE: 02/08/2020 PREOPERATIVE DIAGNOSIS: Anemia. POSTOPERATIVE DIAGNOSES: Severe gastritis and duodenitis as well as hiatal hernia. PROCEDURE: EGD with biopsy. SURGEON: Reinaldo Keys DO PORTER HEAD: None. ANESTHESIA: IV sedation by the anesthesiologist. SPECIMEN: Biopsy from the duodenum, biopsy of the antrum, biopsy of body of stomach and biopsy from the GE junction. BLOOD LOSS: Scant. FLUIDS: Per anesthesia. POSTOPERATIVE CONDITION: Stable. INDICATION FOR PROCEDURE: The patient is a 59-year-old male who has some severe anemia and needed a workup. FINDINGS: The patient had some pretty severe gastritis and duodenitis, but did not have any obvious bleeding or signs of bleeding. PROCEDURE NOTE: After informed consent was obtained, the patient was brought to the endoscopy suite, placed in bed in the left lateral decubitus position. He was administered IV sedation by the anesthesiologist who then monitored his vitals the entire time, heart rate, blood pressure and pulse ox and the scope was inserted down the mouth through the esophagus and stomach. Immediately upon entering the stomach, noted severe gastritis, pushed through into the duodenum. Duodenum showed some severe duodenitis as well. No signs of active bleeding. Biopsy done in the duodenum and then pulled back, did a biopsy of the antrum and then did a biopsy of body of stomach, retroflexed the scope, saw a small hiatal hernia and then pulled the scope up into the GE junction, did a biopsy of the GE junction, placed the scope back into the stomach, suctioned all the air out and then pulled the scope up the esophagus, taking pictures of the esophagus, no ulcerations, no varices, no signs of bleeding in esophagus and then took a picture of the vocal cords looked good and removed the scope. The patient tolerated the procedure, recovered in endoscopy suite. Job ID: [id number] DocumentID: [id number] Dictated Date: 02/08/2020 12:35:30 Icing Machine Operator Date: 02/08/2020 19:49:30 Dictated By: REINALDO KEYS DO [facility] CAN[facility] CENTERCorina
[2020-02-09] VITALS (9 sets, daily range): BP systolic 119–161; BP diastolic 61–92
[2020-02-09] MEDS: NS IV 1000 ML 1,000 ML IV SCH ×2 (02:36→12:49)
[2020-02-09 07:01] LABS: BASOPHILS % (AUTO) 0 % (0-10); EOSINOPHILS # (AUTO) 0.1 10^3/uL (0.0-0.3); EOSINOPHILS % (AUTO) 2 % (0-10); HEMATOCRIT 21 % (40-54); LYMPHOCYTES # (AUTO) 0.7 X 10^3 (1.0-4.0); LYMPHOCYTES % (AUTO) 25 % (12-44); MEAN CORPUSCULAR HEMOGLOBIN 31 PG (25-34); MEAN CORPUSCULAR HGB CONC 33 G/DL (32-36); MEAN CORPUSCULAR VOLUME 96 FL (80-99); MEAN PLATELET VOLUME 10.6 FL (7.4-10.4); MONOCYTES # (AUTO) 0.3 X 10^3 (0.0-1.0); MONOCYTES % (AUTO) 10 % (0-12); NEUTROPHILS # (AUTO) 1.9 X 10^3 (1.8-7.8); NEUTROPHILS % (AUTO) 63 % (42-75); PLATELET COUNT 192 10^3/uL (130-400); RED CELL DISTRIBUTION WIDTH 15.3 % (10.0-14.5)
[2020-02-09 07:05] LABS: HEMOGLOBIN 6.9 G/DL (13.3-17.7)
--- NOTE | 2020-02-09 07:20 | NUR ---
DR. BURGESS NOTIFIED OF PT'S CRITICAL HGB LEVEL OF 6.9 THIS AM. MESSAGE LEFT. NO NEW ORDERS AT THIS TIME. CRITICAL VALUE PASSED ON TO DAY SHIFT RN.
[2020-02-09] MEDS: LACTATED RINGERS 1,000 ML IV SCH (07:22)
[2020-02-09 07:28] LABS: BUN/CREATININE RATIO 14; CALCIUM 7.1 MG/DL (8.5-10.1); CARBON DIOXIDE 20 MMOL/L (21-32); CHLORIDE 102 MMOL/L (98-107); CREATININE SERUM 0.74 MG/DL (0.60-1.30); GFR ESTIMATED > 60; GLUCOSE 79 MG/DL (70-105); POTASSIUM 3.9 MMOL/L (3.6-5.0); SODIUM 128 MMOL/L (135-145)
[2020-02-09] MEDS: PANTOPRAZOLE 40 MG (PROTONIX) VIAL IV SCH ×2 (08:07→21:15)
[2020-02-09] MEDS: CATHETER FLUSH 10 ML SYR IV PRN (08:07)
[2020-02-09] MEDS: DOCUSATE SODIUM 100 MG (COLACE) CAP PO SCH ×2 (08:07→21:15)
--- NOTE | 2020-02-09 13:11 | NUR ---
RD ASSESSMENT PMHx: ETOH use/abuse; HTN PT INTERACTION: Pt was awake and pleasant during consult for malnutrition. Pt states current appetite is "alright, I guess." Note avg PO intake 50% x2d, per chart review. Pt states following a regular diet at home and has no issues with chewing/swallowing food. Pt states no recent issues with nausea, vomiting or constipation. Pt states some recent issues with diarrhea, and that his last BM was 02/08. Note pt currently on bowel regimen of colace BID, per chart review. Pt states unsure of recent wt changes. "I don't know because I don't really pay attention." Note recent 26# wt gain x6mon, per chart review. Upon visual assessment, pt appears to be adequately nourished with a BMI of 27.3. Given PO intake and wt hx, pt does not meet criteria for malnutrition per ASPEN guidelines. ABNORMAL NUTRITION-RELATED LAB VALUES LOW: Na 128; Ca 7.1; Pro 5.2; alb 2.5 HIGH: bili 1.8 Est. kcal needs: 2970-2207 kcal | 20-25 kcal/kg Est. Pro needs: 77-92 g Pro | 1.0-1.2 g Pro/kg PES STATEMENT: Inadequate oral intake (NI-2.1) related to loss of appetite | diarrhea as evidenced by pt interview | avg PO intake 50% x2d INTERVENTION: Continue with current diet order of Regular diet. Continue with current supplementation order of Ensure HP with meals TID, for increased kcal intake. Provides 160 kcal and 16 g Pro per serving. Encouraged pt to eat when able. Will continue to follow and reassess as pt needs, intake, and status change. MONITOR/EVALUATE: PO Intake; Plan of Care; Hydration Status; Weight Status; Lab Values Aubree Clark, MS, RD, LD
[2020-02-09] MEDS ORDERED: FUROSEMIDE 40 MG/4 ML INJ (LASIX) IVP NR (14:00)
--- NOTE | 2020-02-09 14:22 | Progress Note - Hospitalist ---
Subjective HPI/CC On Admission Date Seen by Provider: February 09, 2020 Time Seen by Provider: 09:45 Jose L Car is a 59-year-old male with past medical history of chronic back pain, alcohol abuse, who presented with leg swelling and bruising. He reports that his legs up and swelling and bruising over the past few weeks. He reports that he quit drinking one month ago. Prior to that he had been drinking about 15 beers a day.he denies any fevers or chills. He denies any chest pain or palpitations. He denies any shortness of breath or cough. He denies any abdominal pain, nausea, vomiting, or diarrhea. He does not take any prescribed medications. He does take ibuprofen most days due to low back pain. Subjective/Events-last exam He has no complains or concerns this morning. He denies any chest pain or s hortness of breath. He denies any abdominal pain, nausea, or vomiting. He has been limiting his water intake. Objective Exam Vital Signs Vital Signs Date Time Temp Pulse Resp B/P (MAP) Pulse Ox O2 Delivery O2 Flow Rate FiO2 02/09/20 12:00 36.4 75 19 156/83 (107) 100 Room Air 02/09/20 09:00 4.00 Capillary Refill : Less Than 3 Seconds General Appearance: No Apparent Distress, WD/WN HEENT: PERRL/EOMI, Pharynx Normal Neck: Normal Inspection, Supple Respiratory: Lungs Clear, Normal Breath Sounds, No Respiratory Distress Cardiovascular: Regular Rate, Rhythm, No Murmur Gastrointestinal: Normal Bowel Sounds, Non Tender, Soft Extremity: Normal Inspection, Non Tender, Pedal Edema Neurologic/Psychiatric: Alert, Oriented x3, No Motor/Sensory Deficits, Normal Mood/Affect Skin: Normal Color, Warm/Dry Results/Procedures Lab Laboratory Tests 02/09/20 05:50 Patient resulted labs reviewed. Imaging: Reviewed Imaging Report Assessment/Plan Assessment and Plan Assess & Plan/Chief Complaint Hyponatremia due to psychogenic polydipsia sodium 122 on arrival, 128 this morning, stable Discontinue normal saline Continue fluid restriction Normocytic anemia Folate deficiency Hemoglobin 6.9 this morning, transfuse 1 unit PRBC Status post 1 unit PRBC 02/06 No evidence of bleeding source, possibly dilutional Iron studies not indicative of iron deficiency, ferritin pending B12 normal, folic acid level low EGD revealed gastritis and duodenitis Continue PPI Hypoalbuminemia Severe protein calorie malnutrition Edema Alcohol dependence CT chest/abdomen/pelvis showed emphysema, acute rib fractures, cholelithiasis without cholecystitis Ultrasound revealed normal-appearing liver Venous Dopplers negative for DVT Consult dietary for malnutrition Begin ensure high-protein supplements Giving one-time dose of Lasix today, assess response DVT prophylaxis: Held due to possible GI bleeding Diagnosis/Problems Diagnosis/Problems (1) Psychogenic polydipsia Status: Acute (2) Hyponatremia Status: Acute (3) Anemia Status: Acute Qualifiers: Anemia type: unspecified type Qualified Codes: D64.9 - Anemia, unspecified (4) Alcohol abuse Status: Chronic (5) Emphysema of lung Status: Chronic (6) Edema Status: Acute (7) Hypoalbuminemia Status: Acute (8) Severe protein-calorie malnutrition Status: Acute (9) Cholelithiasis without cholecystitis Status: Chronic (10) Right rib fracture Status: Acute Qualifiers: Encounter type: initial encounter Rib fracture type: multiple ribs Fracture type: closed Qualified Codes: S22.41XA - Multiple fractures of ribs, right side, initial encounter for closed fracture Clinical Quality Measures DVT/VTE Risk/Contraindication: Risk Factor Score Per Nursin RFS Level Per Nursing on Admit: 4+=Very High SELENA BURGESS MD February 09, 2020 14:22
[2020-02-10] VITALS: BP 140/75
[2020-02-10 04:00] VITALS: BP 133/67
[2020-02-10] MEDS ORDERED: FOLIC ACID 1 MG TAB PO SCH (07:00)
[2020-02-10 08:00] VITALS: BP 158/84
[2020-02-10 09:24] LABS: ALBUMIN 2.8 GM/DL (3.2-4.5); CHLORIDE 99 MMOL/L (98-107); POTASSIUM 3.7 MMOL/L (3.6-5.0); SODIUM 131 MMOL/L (135-145)
[2020-02-10] MEDS: PANTOPRAZOLE 40 MG (PROTONIX) VIAL IV SCH (09:24)
[2020-02-10] MEDS: DOCUSATE SODIUM 100 MG (COLACE) CAP PO SCH (09:24)
[2020-02-10 09:25] LABS: CALCIUM 7.8 MG/DL (8.5-10.1)
[2020-02-10 09:26] LABS: GLUCOSE 106 MG/DL (70-105)
[2020-02-10 09:27] LABS: TOTAL PROTEIN 5.6 GM/DL (6.4-8.2)
[2020-02-10 09:28] LABS: BILIRUBIN,TOTAL 1.6 MG/DL (0.1-1.0); CARBON DIOXIDE 23 MMOL/L (21-32)
[2020-02-10 09:30] LABS: ALKALINE PHOSPHATASE 74 U/L (40-136); CREATININE SERUM 0.83 MG/DL (0.60-1.30); GFR ESTIMATED > 60
[2020-02-10 09:31] LABS: BUN/CREATININE RATIO 14
[2020-02-10 09:33] LABS: ALANINE AMINOTRANSFERASE 17 U/L (0-55); MAGNESIUM 1.7 MG/DL (1.6-2.4)
[2020-02-10 10:12] LABS: BILIRUBIN,URINE NEGATIVE (NEGATIVE); CLARITY,URINE CLEAR; COLOR,URINE ORANGE; GLUCOSE, URINE (UA) NEGATIVE (NEGATIVE); KETONES,URINE NEGATIVE (NEGATIVE); LEUKOCYTE ESTERASE ,URINE NEGATIVE (NEGATIVE); NITRITE,URINE NEGATIVE (NEGATIVE); PROTEIN,URINE TRACE (NEGATIVE)
[2020-02-10 10:19] LABS: BACTERIA,URINE NEGATIVE /HPF; SQUAMOUS EPITHELIAL CELL,UR RARE /HPF; WBC,URINE RARE /HPF
[2020-02-10] MEDS ORDERED: PANT40TA3 PO (10:54)
[2020-02-10] MEDS ORDERED: FOLI0.4T2 PO (10:56)
--- NOTE | 2020-02-10 11:18 | Progress Note - Surgery ---
Subjective Time Seen by a Provider: 11:05 Subjective/Events-last exam Pt seen and examined, denies any pain and no complaints. He is dressed and about to go home. Review of Systems General: Fatigue Pulmonary: No Dyspnea, No Cough Cardiovascular: No: Chest Pain, Palpitations Gastrointestinal: No: Nausea, Vomiting, Abdominal Pain Objective Exam Vital Signs Date Time Temp Pulse Resp B/P (MAP) Pulse Ox O2 Delivery O2 Flow Rate FiO2 02/10/20 08:20 Room Air 02/10/20 08:00 36.1 85 19 158/84 (108) 100 Room Air 02/10/20 04:00 36.3 80 19 133/67 (89) 99 Room Air 02/10/20 00:00 37.6 81 20 140/75 (96) 96 Room Air 02/09/20 21:15 Room Air 02/09/20 19:21 36.6 86 17 151/61 (91) 99 Room Air 02/09/20 16:31 36.2 76 15 139/80 (99) 100 Room Air 02/09/20 12:00 36.4 75 19 156/83 (107) 100 Room Air 02/09/20 11:34 35.6 70 161/86 I & O 02/10/20 07:00 Intake Total 3960 ml Output Total 1000 ml Balance 2960 ml Capillary Refill : Less Than 3 Seconds General Appearance: No Apparent Distress, WD/WN HEENT: PERRL/EOMI Respiratory: Lungs Clear, Normal Breath Sounds, No Respiratory Distress Cardiovascular: Regular Rate, Rhythm, No Murmur Gastrointestinal: normal bowel sounds, non tender, soft, no organomegaly, no pulsatile mass Extremity: No Calf Tenderness, Pedal Edema Neurologic/Psychiatric: Alert, Oriented x3 Results Lab Laboratory Tests 02/10/20 08:16: Stool Occult Blood Immunoassay NEGATIVE 02/10/20 09:04: Hemoglobin 9.0#L, Hematocrit 27L, Sodium Level 131L, Potassium Level 3.7, Chloride Level 99, Carbon Dioxide Level 23, Anion Gap 9, Blood Urea Nitrogen 12, Creatinine 0.83, Estimat Glomerular Filtration Rate > 60, BUN/Creatinine Ratio 14, Glucose Level 106H, Calcium Level 7.8L, Corrected Calcium 8.8, Magnesium Level 1.7, Total Bilirubin 1.6H, Aspartate Amino Transf (AST/SGOT) 32, Alanine Aminotransferase (ALT/SGPT) 17, Alkaline Phosphatase 74, Total Protein 5.6L, Albumin 2.8L 02/10/20 10:05: Urine Color ORANGE, Urine Clarity CLEAR, Urine pH 6.0, Urine Specific [place] 1.015L, Urine Protein TRACEH, Urine Glucose (UA) NEGATIVE, Urine Ketones NEGATIVE, Urine Nitrite NEGATIVE, Urine Bilirubin NEGATIVE, Urine Urobilinogen 1.0, Urine Leukocyte Esterase NEGATIVE, Urine RBC (Auto) NEGATIVE, Urine RBC NONE, Urine WBC RARE, Urine Squamous Epithelial Cells RARE, Urine Crystals NONE, Urine Bacteria NEGATIVE, Urine Casts NONE, Urine Mucus NEGATIVE, Urine Culture Indicated NO Assessment/Plan Assessment/Plan Assessment/Plan Anemia Lower Extremity edema and bruising Hypertension EGD was done and showed some severe Gastritis; I told him to make sure he take a Nexium or Pepcid or something similar when he goes home. He is still refusing the colonoscopy; "I guess I'll do something if something bad happens". I explained that the inflammation in his stomach really doesn't explain his anemia and that I recommend a colonoscopy. I told him it is possible he could have cancer and he said he didn't want a colonoscopy. He can follow up and see me if he changes his mind or anything changes. Clinical Quality Measures DVT/VTE Risk/Contraindication: Risk Factor Score Per Nursin RFS Level Per Nursing on Admit: 4+=Very High AKILA GARY DO February 10, 2020 11:18
--- NOTE | 2020-02-10 13:19 | Discharge Summary ---
Discharge Summary Hospital Course Was the Problem List Reviewed?: Yes Problems/Dx: (1) Psychogenic polydipsia Status: Acute (2) Hyponatremia Status: Acute (3) Anemia Status: Acute Qualifiers: Qualified Codes: D64.9 - Anemia, unspecified (4) Alcohol abuse Status: Chronic (5) Emphysema of lung Status: Chronic (6) Edema Status: Acute (7) Hypoalbuminemia Status: Acute (8) Severe protein-calorie malnutrition Status: Acute (9) Cholelithiasis without cholecystitis Status: Chronic (10) Right rib fracture Status: Acute Qualifiers: Qualified Codes: S22.41XA - Multiple fractures of ribs, right side, initial encounter for closed fracture Hospital Course Date of Admission: February 06, 2020 at 13:49 Admission Diagnosis : Hyponatremia Family Physician/Provider: Darren Washington MD Date of Discharge: 02/10/20 Discharge Diagnosis: hyponatremia due to psychogenic polydipsia, anemia, folic acid deficiency Hospital Course: Jose L Car is a 59-year-old male with known past medical history who presented with lower extremity edema and was admitted with hyponatremia. His sodium was found to be 122 on arrival. He had been drinking 15 beers daily up until recently. He says that is urine had turned dark and he thought he was dehydrated so he is drinking a significant amount of water. His total bilirubin was elevated on arrival and likely the cause of his dark urine. He was placed on a fluid restriction and his sodium improved to 131 at the time of discharge. He underwent an ultrasound which revealed a normal liver. He also underwent a venous Doppler examination which ruled out DVT. He had an echocardiogram performed which revealed normal ejection fraction and no other significant abnormalities. His hyponatremia was thought to be due to psychogenic polydipsia with his increased water intake. He also had a significant anemia with his hemoglobin dropping to 5.8. He underwent an EGD with general surgery with revealed gastritis and duodenitis but nothing to explain his anemia. I recommended colonoscopy but the patient refused. He was found to have a folic acid deficiency and was started on folic acid replacement. He should follow-up with his primary care physician, Dr. Washington. He was encouraged to consider a colonoscopy as an outpatient. Labs and Pending Lab Test: Laboratory Tests 02/10/20 08:16: Stool Occult Blood Immunoassay NEGATIVE 02/10/20 09:04: Hemoglobin 9.0#L, Hematocrit 27L, Sodium Level 131L, Potassium Level 3.7, Ch [place] Level 99, Carbon Dioxide Level 23, Anion Gap 9, Blood Urea Nitrogen 12, Creatinine 0.83, Estimat Glomerular Filtration Rate > 60, BUN/Creatinine Ratio 14, Glucose Level 106H, Calcium Level 7.8L, Corrected Calcium 8.8, Magnesium Level 1.7, Total Bilirubin 1.6H, Aspartate Amino Transf (AST/SGOT) 32, Alanine Aminotransferase (ALT/SGPT) 17, Alkaline Phosphatase 74, Total Protein 5.6L, Albumin 2.8L 02/10/20 10:05: Urine Color ORANGE, Urine Clarity CLEAR, Urine pH 6.0, Urine Specific [place] 1.015L, Urine Protein TRACEH, Urine Glucose (UA) NEGATIVE, Urine Ketones NEGATIVE, Urine Nitrite NEGATIVE, Urine Bilirubin NEGATIVE, Urine Urobilinogen 1.0, Urine Leukocyte Esterase NEGATIVE, Urine RBC (Auto) NEGATIVE, Urine RBC NONE, Urine WBC RARE, Urine Squamous Epithelial Cells RARE, Urine Crystals NONE, Urine Bacteria NEGATIVE, Urine Casts NONE, Urine Mucus NEGATIVE, Urine Culture Indicated NO 02/10/20 11:21: Lab Scanned Report Transfusion Reaction Form Home Meds Active Folic Acid 0.4 Mg Tablet 1 Mg PO DAILY 30 Days Pantoprazole Sodium 40 Mg Tablet.dr 40 Mg PO DAILY 30 Days Reported Ibuprofen 200 Mg Capsule 400 Mg PO Q6H PRN Assessment/Pt Instructions Take medications as prescribed. Follow-up with your primary care doctor, Dr. Washington. Consider undergoing colonoscopy for colon cancer screening in the setting of your anemia. Discharge Planning: <30 minutes discharge planning Discharge Instructions Discharge Diet: No Restrictions Activity as Tolerated: Yes Pneumonia Vaccine Order Indica: Yes Consultations general surgery Discharge Physical Examination Vital Signs Vital Signs Date Time Temp Pulse Resp B/P (MAP) Pulse Ox O2 Delivery O2 Flow Rate FiO2 02/10/20 08:20 Room Air 02/10/20 08:00 36.1 85 19 158/84 (108) 100 02/09/20 09:00 4.00 General Appearance: No Apparent Distress, Chronically ill Respiratory: Lungs Clear, Normal Breath Sounds, No Respiratory Distress Cardiovascular: Regular Rate, Rhythm, No Murmur Gastrointestinal: Normal Bowel Sounds, Non Tender, Soft Extremity: Normal Capillary Refill, Non Tender, Pedal Edema Skin: Normal Color, Warm/Dry Neurologic/Psychiatric: Alert, Oriented x3, No Motor/Sensory Deficits, Normal Mood/Affect Allergies: Coded Allergies: No Known Drug Allergies (Unverified , 08/30/19) Copy Copies To 1: DARREN WASHINGTON MD Discharge Summary Date of Admission February 06, 2020 at 13:49 Date of Discharge Discharge Date: February 10, 2020 Discharge Time: 13:16 Admission Diagnosis Hyponatremia Consults/Procedures Consulations general surgery Procedures EGD Discharge Diagnosis Hyponatremia due to psychogenic polydipsia Normocytic anemia Folate deficiency (1) Psychogenic polydipsia Status: Acute (2) Hyponatremia Status: Acute (3) Anemia Status: Acute Qualifiers: Qualified Codes: D64.9 - Anemia, unspecified (4) Alcohol abuse Status: Chronic (5) Emphysema of lung Status: Chronic (6) Edema Status: Acute (7) Hypoalbuminemia Status: Acute (8) Severe protein-calorie malnutrition Status: Acute (9) Cholelithiasis without cholecystitis Status: Chronic (10) Right rib fracture Status: Acute Qualifiers: Qualified Codes: S22.41XA - Multiple fractures of ribs, right side, initial encounter for closed fracture Clinical Quality Measures DVT/VTE Risk/Contraindication: Risk Factor Score Per Nursin RFS Level Per Nursing on Admit: 4+=Very High SELENA BURGESS MD February 10, 2020 13:15
== END 2020-02-10 12:05 | disposition home or self-care (01) | DRG 811 ==
LOC: EDUNIT# 11:26 → ER 11:27 → ICU 13:49 → 4TH 02-08 15:19
PROVIDERS: ADMIT Family Medicine; ATTEND Internal Medicine
PROC: 0DB78ZX Excision of Stomach, Pylorus, Via Natural or Artificial Opening Endoscopic, Diagnostic (ICD-10-PCS; 2020-02-08)
PROC: 0DB68ZX Excision of Stomach, Via Natural or Artificial Opening Endoscopic, Diagnostic (ICD-10-PCS; 2020-02-08)
PROC: 0DB48ZX Excision of Esophagogastric Junction, Via Natural or Artificial Opening Endoscopic, Diagnostic (ICD-10-PCS; 2020-02-08)
PROC: 0DB98ZX Excision of Duodenum, Via Natural or Artificial Opening Endoscopic, Diagnostic (ICD-10-PCS; principal; 2020-02-08 12:00)
DX: D64.9 Anemia, unspecified (principal); E87.1 Hypo-osmolality and hyponatremia; K74.60 Unspecified cirrhosis of liver; E43 Unspecified severe protein-calorie malnutrition; S22.41XA Multiple fractures of ribs, right side, initial encounter for closed fracture; K29.70 Gastritis, unspecified, without bleeding; K29.80 Duodenitis without bleeding; S80.11XA Contusion of right lower leg, initial encounter; S80.12XA Contusion of left lower leg, initial encounter; S70.11XA Contusion of right thigh, initial encounter; S70.12XA Contusion of left thigh, initial encounter; R60.0 Localized edema; I10 Essential (primary) hypertension; M54.5 Low back pain; E88.09 Other disorders of plasma-protein metabolism, not elsewhere classified; J43.9 Emphysema, unspecified; K80.20 Calculus of gallbladder without cholecystitis without obstruction; Z87.891 Personal history of nicotine dependence; E53.8 Deficiency of other specified B group vitamins; K44.9 Diaphragmatic hernia without obstruction or gangrene; R63.1 Polydipsia; F54 Psychological and behavioral factors associated with disorders or diseases classified elsewhere; F10.20 Alcohol dependence, uncomplicated
CPT/HCPCS: 36415; 71250; 71275; 74176; 74177; 76705; 80048; 80053; 80320; 81000; 82274; 82607; 82728; 82746; 83540; 83735; 83880; 84295; 84484; 85014; 85018; 85025; 85379; 85610; 85652; 85730; 86141; 86850; 86900; 86901; 86920; 93005; 93306; 93970

== ENCOUNTER → 2020-02-16 | Outpatient (CLI) | payer OTHER ==
[~2020-02-16] MED LIST changes: +FOLI0.4T2 PO; +IBUP-2185 PO; +PANT40TA3 PO
[2020-02-16 10:20] LABS: HEMOGLOBIN 9.6 G/DL (13.3-17.7)
[2020-02-16 10:30] LABS: CHLORIDE 101 MMOL/L (98-107); POTASSIUM 4.3 MMOL/L (3.6-5.0); SODIUM 132 MMOL/L (135-145)
[2020-02-16 10:31] LABS: CALCIUM 8.1 MG/DL (8.5-10.1); GLUCOSE 127 MG/DL (70-105)
[2020-02-16 10:33] LABS: CARBON DIOXIDE 22 MMOL/L (21-32)
[2020-02-16 10:35] LABS: CREATININE SERUM 0.73 MG/DL (0.60-1.30); GFR ESTIMATED > 60
[2020-02-16 10:36] LABS: BUN/CREATININE RATIO 11
== END ==
LOC: LAB 10:02
PROVIDERS: ATTEND Internal Medicine
DX: E87.1 Hypo-osmolality and hyponatremia (principal); D64.9 Anemia, unspecified
CPT/HCPCS: 36415; 80048; 85014; 85018